=== PATIENT | male | born 1970 | race African-American/Black ===

== ENCOUNTER → 2019-11-03 13:44 | Outpatient (CLI) | payer SELFPAY ==
--- NOTE | 2019-11-03 13:45 | CT_ITS ---
PROCEDURE: CT HEART W CALCIUM SCORE CLINICAL HISTORY: eval for cad COMPARISON: No exams were available for comparison TECHNIQUE: Axial images obtained with sagittal and coronal reformats. All CT scans at the facility use one or more dose reduction, viz: automated exposure control, ma/kV adjustment per patient size (including targeted exams where dose is matched to indication, i.e. head), or iterative reconstruction technique. FINDINGS: The coronary artery calcium score is 0 indicating no identifiable calcific atherosclerotic plaque of the coronary arteries. This indicates a very low cardiovascular disease risk. No pertinent incidental findings. Mild degenerative changes are present in the thoracic spine. IMPRESSION: No identifiable calcific plaque indicating very low cardiovascular disease risk Dictated by: Donnell Valencia MD 11/03/2019 18:07 Donnell Valencia MD in [facility] 11/03/2019 18:07
== END ==
PROVIDERS: PCP Family Medicine; Visit Provider Internal Medicine Cardiovascular Disease
DX: E78.5 Hyperlipidemia, unspecified (principal); I10 Essential (primary) hypertension
CPT/HCPCS: 75571